=== PATIENT | female | born 1950 | race Two or more races ===

== ENCOUNTER 2019-09-21 07:19 | Day surgery (SDC) | payer OTHER | END 2019-09-21 14:25 | disposition home or self-care (01) | LOC: CIR.AMB 07:19 | DX: R15.9 Full incontinence of feces (principal) | CPT/HCPCS: 64581; C1778 ==

== ENCOUNTER 2019-09-27 13:35 | Inpatient (IN) | payer OTHER ==
[~2019-09-27] VITALS: Ht 162.6 cm; Wt 79.4 kg
[~2019-09-27 13:35] MED LIST: AMBIEN10 MG PO; ASPIR 8181 MG PO; ATACAND16 MG PO; CRESTOR20 MG PO; INDUR PO; LASIX20 MG PO; NEURONTIN800 MG PO; NORVASC5 MG PO; PERCOCET 5-3251 EACH PO; PLAVIX75 MG PO; PROTONIX20 MG PO; ZYRTEC10 M2 PO
[2019-10-01] MEDS ORDERED: MEDROLPACK PO (09:58)
== END 2019-10-01 16:43 | disposition home or self-care (01) | DRG 607 ==
LOC: ER 13:35 → SURG 17:13
PROVIDERS: ADMIT Surgery; ATTEND Surgery
DX: L20.84 Intrinsic (allergic) eczema (principal); L03.311 Cellulitis of abdominal wall; I10 Essential (primary) hypertension; R15.9 Full incontinence of feces; Z03.818 Encounter for observation for suspected exposure to other biological agents ruled out

== ENCOUNTER 2019-10-05 06:21 | Day surgery (SDC) | payer OTHER ==
[~2019-10-05 06:21] MED LIST changes: +MEDROLPACK PO
[2019-10-05] MEDS ORDERED: ULTRAM50 MG PO (10:38)
== END 2019-10-05 13:20 | disposition home or self-care (01) ==
LOC: CIR.AMB 06:21 → ADM 13:15 → CIR.AMB 13:15
PROVIDERS: ATTEND Surgery
DX: R15.9 Full incontinence of feces (principal)
CPT/HCPCS: 64590; 95971; L8679

== ENCOUNTER 2019-11-08 08:59 | Inpatient (IN) | payer OTHER ==
[~2019-11-08] VITALS: Ht 162.6 cm; Wt 82.6 kg
[~2019-11-08 08:59] MED LIST changes: +ULTRAM50 MG PO
[2019-11-10] MEDS ORDERED: PERCOCET 5-3251 EACH PO (09:33)
== END 2019-11-10 10:18 | disposition home or self-care (01) | DRG 29 ==
LOC: ER 08:59 → SURH 10:06 → SEC-K 10:06 → SURH 16:38
PROVIDERS: ADMIT Surgery; ATTEND Surgery
PROC: 00PU0MZ Removal of Neurostimulator Lead from Spinal Canal, Open Approach (ICD-10-PCS; principal; 2019-11-09 17:00)
DX: T85.193A Other mechanical complication of implanted electronic neurostimulator, generator, initial encounter (principal); L03.311 Cellulitis of abdominal wall; R15.9 Full incontinence of feces; M79.7 Fibromyalgia; K62.89 Other specified diseases of anus and rectum; Z20.828 Contact with and (suspected) exposure to other viral communicable diseases